=== PATIENT | male | born 1980 | race Caucasian/White ===

== ENCOUNTER 2017-04-17 23:14 | Emergency (ER) | payer BC ==
[~2017-04-17] VITALS: Ht 175.3 cm; Wt 81.6 kg
--- NOTE | 2017-04-17 23:20 | NUR ---
[facility] FROM [facility] [employer] FOR POSSIBLE ETOH- PATIENT ASLEEP,. AROUSEABLE TO PAIN. PER REPORT PATIET HAS WHISKEY AND VODKA,. PT IS SATING WELL ON ROOM AIR, SKIN IS WARM TO TOUCH AND NON DIAPHORETIC. AFEBRILE. VSS. GOWNED PT AND PLACED ON TELE MONITOR
[2017-04-18] MEDS ORDERED: IV NS 0.9% 1,000 ML BAG IV ONE (00:30)
--- NOTE | 2017-04-18 01:27 | NUR ---
PT RESTING COMFORTABLY LEFT LATERAL ON BED. AWAKENS TO LIGHT TOUCH, TURNS AWAY, AND MUMBLED INCOMPREHENSIBLE WORDS. VSS, NAD NOTED. FAMILY AT BEDSIDE. PT GIVEN NEW BLANKET. WILL CONT TO MONITOR.
--- NOTE | 2017-04-18 03:25 | NUR ---
PT RESTING COMFORTABLY LEFT LATERAL ON BED. AWAKENS TO LIGHT TOUCH; STATES SOMETHING IN [place] LANGUAGE. PER FAMILY MEMBER AT BEDSIDE, PT DENIES COMPLAINT AND RETURNS TO SLEEP. VSS, NAD NOTED. WILL CONT TO MONITOR.
[2017-04-18 05:33] VITALS: BP 98/66
--- NOTE | 2017-04-18 05:33 | NUR ---
IV removed. Catheter intact and site benign. Pressure and 4x4 applied to site. No bleeding noted.Patient discharged to home in stable condition. Written and verbal after care instructions given. Patient verbalizes understanding of instruction. Patient ambulates to the restroom with stable gait. AAOx3.
== END 2017-04-18 05:33 | disposition home or self-care (01) ==
LOC: ER 23:16
DX: F10.129 Alcohol abuse with intoxication, unspecified (principal); R79.89 Other specified abnormal findings of blood chemistry; Z88.0 Allergy status to penicillin
CPT/HCPCS: 82962-TC; A4606; J7030; Z7610